=== PATIENT | male | born 1950 | race Caucasian/White ===

== ENCOUNTER → 2024-02-27 12:31 | Outpatient (CLI) | payer MEDICARE, OTHER, SELFPAY ==
--- NOTE | 2024-02-27 12:37 | DI.ECHO.S_ITS ---
[facility] : : [address] : : [place] : : [id number] : : Phone: [phone] Echocardiogram Report + + :Name: RIA SANCHEZ Study Date: 02/27/2024 Height: 68 in : :Hospital ReadingLocation: Weight: 210 lb : : Gender: Male BSA: 2.1 m2 : :: 1950 Age: 73 yrs BP: 116/80 mmHg: :Reason For Study: CARDIAC PACEMAKER : :Ordering Physician: RHIANNON, : :JEFFERY Performed By: Rachel Allen : :Referring: JEFFERY SAHU : + + Interpretation Summary 1) Mildly increased left ventricular thickness (concentric) wirh normal size, normal wall motion, and normal systolic function (EF 55-60%). 2) Normal right ventricular size and function. There is a pacemaker lead in the right ventricle. 3) No significant valvular abnormalities. 4) No prior Echo available for comparison. Procedure: A two-dimensional transthoracic echocardiogram with color flow and Doppler was performed. The study quality was technically adequate. There is no prior echocardiogram noted for this patient. The patient has a paced rhythm. The heart rate ranged between 68-79 bpm during the study. Left Ventricle: The left ventricle is normal in size. There is mild concentric left ventricular hypertrophy. The ejection fraction is estimated to be 55-60%. Left ventricular systolic function appears normal without focal wall motion abnormalities. Diastolic function could not be accurately assessed due to paced rhythm. Right Ventricle: There is a pacemaker lead in the right ventricle. The right ventricle is normal size. The right ventricular systolic function is normal. Atria: The left atrial size is normal. Right atrial size is normal. There is no Doppler evidence for an interatrial shunt. Mitral Valve: The mitral valve leaflets appear mildly thickened, but open well. The mitral valve leaflets are slightly calcified. There is trace mitral regurgitation. Aortic Valve: The aortic valve is trileaflet. The aortic valve opens well. There is no aortic valve stenosis. No aortic regurgitation is present. Tricuspid Valve: The tricuspid valve is normal in structure and function. There is trace tricuspid regurgitation. Pulmonic Valve: The pulmonic valve leaflets are thin and pliable; valve motion is normal. There is mild pulmonic regurgitation. Great Vessels: The aortic root is borderline dilated. The aortic arch is at the upper limits of normal in size. The IVC is of normal diameter and collapses greater than 50% with a sniff. This suggests a low right atrial pressure of 3 mm Hg. Pericardium/ Pleura There is no pericardial effusion. There is no pleural effusion. MMode/2D Measurements & Calculations LVIDd: 4.5 cm LVOT diam: 2.0 cm LVIDs: 2.8 cm Ao root diam: 4.0 cm FS: 36.9 % asc Aorta Diam: 3.9 cm IVSd: 1.1 cm Ao Arch Diam (Prox Trans): 3.7 cm LVPWd: 1.2 cm LV zapien. diameter/BSA (cm/m^2): 2.1 LV sys. diameter/BSA (cm/m^2): 1.4 LA A2 area: 17.8 cm2 RA long axis: 6.4 cm LA A4 area: 20.2 cm2 RA area: 18.2 cm2 LA length (vol): 6.4 cm RA vol: 44.2 ml LA vol: 47.8 ml RA : 21.2 ml/m2 LA vol index: 22.9 ml/m2 IVC diam: 1.8 cm RVD1 (basal): 3.7 cm TAPSE: 2.0 cm Doppler Measurements & Calculations Ao V2 max: 143.4 cm/sec LVOT Max Candido: 89.8 cm/sec Ao V2 mean: 102.8 cm/sec LV V1 max P.2 mmHg Ao max P.2 mmHg LV V1 VTI: 16.4 cm Ao mean P.6 mmHg SAMY(I,D): 2.1 cm2 Ao V2 VTI: 25.1 cm SAMY(V,D): 2.0 cm2 sev ratio: 0.65 SAMY indexed to BSA (cm^2/m^2): 1.0 MV E max candido: 47.8 cm/sec PA V2 max: 89.7 cm/sec MV A max candido: 86.4 cm/sec PA V2 mean: 62.4 cm/sec MV E/A: 0.55 PA mean P.7 mmHg Med Peak E' Candido: 4.1 cm/sec PA pr(Accel): 25.9 mmHg E/E' med: 11.7 Lat Peak E' Candido: 6.9 cm/sec E/E' lat: 6.9 E/e' average: 9.3 MV dec time: 0.23 sec SV(LVOT): 52.7 ml Reading Physician:04:04 PM
== END ==
PROVIDERS: Referring Provider Internal Medicine Cardiovascular Disease; Visit Provider Internal Medicine Cardiovascular Disease
DX: I37.1 Nonrheumatic pulmonary valve insufficiency (principal); Z95.0 Presence of cardiac pacemaker
CPT/HCPCS: 93306